=== PATIENT | male | born 1960 | race Caucasian/White ===

== ENCOUNTER 2017-01-17 21:41 | Emergency (ER) | payer SELFPAY ==
--- NOTE | ~2017-01-17 | CR72 ---
[facility] A Service of [facility] & [facility] RADIOLOGY TEXT RESULTS PATIENT: JORGE BRANDON LOCATION: [facility] : 64 UNIT #: [id number] AGE: [address]: John Villavicencio MD SEX: M ORDER DR: [id number] [facility] [address] [facility]. [place], [place] [address] [id number] E MR#: [id number] Acc #: [id number] NAME: JORGE BRANDON : 1960 SEX: M STUDY DATE/TIME: 01/17/2017 22:55 UNIT: [facility] ROOM: STUDY DESCRIPTION: CR Chest Single View Portable Attending Physician: Neto Villavicencio M.D. Ordering Physician: Ed Doc Mar Laguna Primary Care Physician: Primary Care Physician No MEDICAL IMAGING REPORT This report is preliminary unless electronic signature is present EXAM Portable chest INDICATIONS Shortness of air and fever for 3 days. Comparison study is 02/11/08. FINDINGS A portable view of the chest was obtained. The heart size and vascularity are normal, the lungs are clear and the bones are unremarkable. IMPRESSION No active disease. Dictated by... Keo Ceja M.D. THIS IS AN ELECTRONICALLY VERIFIED REPORT Keo Ceja M.D. at 01/18/2017 3:38 AM SIRISHA/valarie TD: 01/18/2017 00:50 JOB #: [id number] MEDICAL IMAGING REPORT Page 1 of 1 COPY
--- NOTE | ~2017-01-17 | EKG ---
PATIENT: JORGE BRANDON UNIT #: [id number] Ventricular Rate: 91 BPM Atrial Rate: 91 BPM P-R Interval: 142 ms QRS Duration: 94 ms Q-T Interval: 372 ms QTC Calculation(Bezet): 457 ms P Gos[place]: 56 degrees Calculated R [place]: 20 degrees Calculated T [place]: 46 degrees Diagnosis Line: Normal sinus rhythm Diagnosis Line: Possible Left atrial enlargement Diagnosis Line: Borderline ECG Diagnosis Line: No previous ECGs available Diagnosis Line: Confirmed by ESEQUIEL FRANCIS MD ([id number]) on 01/18/2017 Diagnosis Line: 7:42:46 AM INTERPRETING MD: PENNY RAMIREZ
--- NOTE | ~2017-01-17 | CT71 ---
[facility] A Service of [facility] RADIOLOGY TEXT RESULTS PATIENT: JORGE BRANDON LOCATION: [facility] : 64 UNIT #: [id number] AGE: [address]: John Villavicencio MD SEX: M ORDER DR: [id number] [place], [place] [address] [id number] E MR#: [id number] Acc #: [id number] NAME: JORGE BRANDON : 1960 SEX: M STUDY DATE/TIME: 01/18/2017 0:15 UNIT: [facility] ROOM: STUDY DESCRIPTION: CT Head Wo Contrast Attending Physician: John Villavicencio Ordering Physician: Neto Villavicencio M.D. Primary Care Physician: Primary Care Physician No MEDICAL IMAGING REPORT This report is preliminary unless electronic signature is present EXAM CT scan of the head without contrast INDICATION Syncopal episodes for 3 days, lightheadedness and dizziness. TECHNIQUE This CT exam was performed with one or more of the following radiation dose reduction techniques: automatic exposure control, adjustment of mA and/or kV according to patient size, and iterative reconstruction. FINDINGS Axial noncontrast images were obtained from the skull base to the vertex. Ventricular size and configuration are normal. There is no evidence of acute infarct or hemorrhage. There are no extra-axial fluid collections. No mass lesion or mass effect is seen. There are no skull fractures. IMPRESSION Normal noncontrast head CT. Dictated by... Keo Ceja M.D. THIS IS AN ELECTRONICALLY VERIFIED REPORT Keo Ceja M.D. at 01/18/2017 3:37 AM SIRISHA/chula TD: 01/18/2017 02:37 JOB #: [id number] MEDICAL IMAGING REPORT [facility] A Service [facility] RADIOLOGY TEXT RESULTS PATIENT: JORGE BRANDON LOCATION: [facility] : 64 UNIT #: [id number] AGE: [address]: John Villavicencio MD SEX: M ORDER DR: Page 1 of 1 COPY
[~2017-01-17 21:41] MED LIST: COUMADIN PO; NO MEDICATIONS; NORCO 5/325 TAB1 TAB PO; NORCO 7.5/325 T1 TAB PO
[2017-01-17 22:53] LABS: BASOPHIL# 0.1 X10e3 (0-0.3); BASOPHIL% 0.4 % (0-2.5); HEMATOCRIT 45.8 % (38.0-50.0); LYMPHOCYTE# 1.2 X10e3 (1.0-3.5); MEAN CELL VOLUME 87.6 FL (83-96); MEAN CORPUSCULAR HEMOGLOBIN 28.6 PG (28-34); MEAN CORPUSCULAR HGB CONC 32.7 g/dL (30-36); MEAN PLATELET VOLUME 8.8 FL (6.5-11.5); MONOCYTE# 1.6 X10e3 (0-1.0); MONOCYTE% 10.6 % (3.0-12.0); NEUTROPHIL# 12.5 X10e3 (1.5-7.1); PLATELET COUNT 273 X10e3 (140-420); RED BLOOD COUNT 5.23 X10e (3.90-5.60); RED CELL DISTRIBUTION WIDTH 14.4 % (11.0-15.5); WHITE BLOOD COUNT 15.5 X10e3 (4.0-10.5)
[2017-01-17 22:55] LABS: DIFF IND YES
[2017-01-17 23:05] LABS: ALBUMIN SERUM 3.1 g/dL (3.5-5.0); BILIRUBIN, DIRECT 0.2 mg/dL (0.0-0.2); BILIRUBIN,INDIRECT 0.4 mg/dL (0.0-0.9); BILIRUBIN,TOTAL 0.6 mg/dL (0.2-2.0); CALCIUM SERUM 8.3 mg/dL (8.4-10.2); CREATININE SERUM 0.9 mg/dL (0.6-1.4); GLOM FILT RATE Estimated 96.5 mL/min (>60); POTASSIUM 3.6 mmol/L (3.5-5.1); PROTEIN TOTAL SERUM 7.4 g/dL (6.0-8.3)
[2017-01-17 23:49] LABS: URINE SOURCE CLEAN CATCH
[2017-01-17 23:53] LABS: ANISOCYTOSIS SL; PLATELET ESTIMATE NORMAL (NORMAL)
[2017-01-17 23:56] LABS: URINE APPEARANCE CLEAR; URINE BILIRUBIN NEG (NEG); URINE BLOOD 1+ (NEG); URINE COLOR YELLOW; URINE GLUCOSE >1000 MG/DL (NEG); URINE KETONE 1+ (NEG); URINE LEUKOCYTE ESTERASE NEG (NEG); URINE NITRATE NEG (NEG); URINE SPECIFIC GRAVITY 1.044 (1.003-1.035)
[2017-01-17 23:58] LABS: URINE BACTERIA AUWI NEG (NEGATIVE); URINE SQUAMOUS EPITHELIAL CELL OCC /[HPF]; UWBCS1 AUWI 0-2 (0-5)
[2017-01-18] LABS: CULTURE INDICATED? NO; URINE PROTEIN 1+ (NEG)
[2017-01-18 00:28] LABS: POC - CKMB <1.0 ng/mL (0.0-7.9); POC - TROPONIN <0.05 ng/mL (<=0.05)
== END 2017-01-18 06:05 | disposition home or self-care (01) ==
LOC: CED 21:41
PROVIDERS: Emergency Medicine
DX: E86.0 Dehydration (principal); R55 Syncope and collapse; E10.65 Type 1 diabetes mellitus with hyperglycemia; Z87.891 Personal history of nicotine dependence
CPT/HCPCS: 36415; 70450; 71010; 80048; 80076; 81003; 82553; 82947; 83036; 84484; 85025; 93005; 96360; 99285